=== PATIENT | female | born 1970 | race Caucasian/White ===

== ENCOUNTER 2021-09-28 03:45 | Emergency (ER) | payer OTHER ==
[2021-09-28] MEDS ORDERED: NORCO 5-325 TA1 EACH PO (04:22)
[2021-09-28] MEDS ORDERED: VIBRAMYCIN100 MG PO (04:22)
== END 2021-09-28 04:32 | disposition home or self-care (01) ==
LOC: FER 03:45
DX: S90.812A Abrasion, left foot, initial encounter (principal); I10 Essential (primary) hypertension; E78.5 Hyperlipidemia, unspecified; Z79.899 Other long term (current) drug therapy; W20.8XXA Other cause of strike by thrown, projected or falling object, initial encounter; Y92.009 Unspecified place in unspecified non-institutional (private) residence as the place of occurrence of the external cause
CPT/HCPCS: 73630